=== PATIENT | female | born 1955 | race Caucasian/White ===

== ENCOUNTER 2018-06-14 10:47 | Day surgery (SDC) | payer OTHER ==
[2018-06-11 10:12] VITALS: BMI 19.5
[2018-06-14] MEDS ORDERED: PROPOFOL 20 ML ONE ×2 (11:59→13:00)
[2018-06-14 13:27] VITALS: TEMP 97.9
[2018-06-14 13:48] VITALS: BP 111/58; PULSE 66
== END 2018-06-14 13:50 | disposition home or self-care (01) ==
LOC: FASU-ENDO 10:47
PROVIDERS: ATTEND Internal Medicine Gastroenterology
PROC: 0DJD8ZZ Inspection of Lower Intestinal Tract, Via Natural or Artificial Opening Endoscopic (ICD-10-PCS; principal; 2018-06-14 12:56)
DX: Z86.010 Personal history of colon polyps (principal); Z83.71 Family history of colonic polyps